=== PATIENT | female | born 1985 | race Caucasian/White ===

== ENCOUNTER 2021-03-22 14:42 | Emergency (ER) | payer BC, MEDICAID ==
[~2021-03-22] VITALS: Ht 162.6 cm; Wt 118.0 kg
[2021-03-22] MEDS ORDERED: KETOROLAC 60MG/2ML VIAL IM ONE (15:00)
[2021-03-22] MEDS ORDERED: METHOCARBAMOL 500MG TABLET PO ONE (15:00)
[2021-03-22] MEDS ORDERED: NAPR-681 MT (16:02)
[2021-03-22] MEDS ORDERED: METH-773 MT (16:02)
[2021-03-22 16:09] VITALS: BP 145/65
== END 2021-03-22 16:09 | disposition home or self-care (01) ==
LOC: ER 14:42
DX: S16.1XXA Strain of muscle, fascia and tendon at neck level, initial encounter (principal); M25.512 Pain in left shoulder; V49.49XA Driver injured in collision with other motor vehicles in traffic accident, initial encounter; Y93.89 Activity, other specified; Y92.488 Other paved roadways as the place of occurrence of the external cause
CPT/HCPCS: 71045; 73060; 96372; 99284; J1885

== ENCOUNTER 2021-05-08 12:02 | Emergency (ER) | payer BC ==
[~2021-05-08] VITALS: Ht 162.6 cm; Wt 116.0 kg
[~2021-05-08 12:02] MED LIST: METH-773 MT; NAPR-681 MT
[2021-05-08] MEDS ORDERED: IBUPROFEN 600MG TABLET PO ONE (12:30)
[2021-05-08] MEDS ORDERED: TETANUS, DIPHTHERIA, PERTUSSIS VAC/PF 0.5ML (>10YR OLD) IM ONE (12:30)
[2021-05-08 12:41] VITALS: BP 155/83
[2021-05-08] MEDS ORDERED: SULF1TAB48 MT (12:52)
[2021-05-08] MEDS ORDERED: IBUP-2029 MT (12:52)
[2021-05-08] MEDS ORDERED: CEPH500T MT (12:52)
== END 2021-05-08 14:46 | disposition home or self-care (01) ==
LOC: ER 14:17
DX: L02.412 Cutaneous abscess of left axilla (principal); R03.0 Elevated blood-pressure reading, without diagnosis of hypertension
CPT/HCPCS: 10060; 81025; 90471; 90715; 99283